=== PATIENT | female | born 1935 | race Caucasian/White ===

== ENCOUNTER 2019-02-03 11:31 | Emergency (ER) | payer OTHER ==
[~2019-02-03 11:31] MED LIST: ALBU8.5H6 IH; ASPI-612 PO; BENZ100C PO; DOXY100V9 PO; ETOD400T2 PO; LOSA100T2 PO; METO50TA29 PO; MULT-245 PO; PROM118S5 PO; SIMV20TA18 PO
--- NOTE | 2019-02-03 11:54 | RAD ---
Examination: CT CODE STROKE HEAD WO History: Neurological deficits; speaking difficulties Comparison/Correlation: None Findings: Axial images of the head were obtained without contrast. Ventricles are normal size. Atrophy and chronic ischemic change noted. No intracranial hemorrhage, midline shift, or mass effect. Small left external capsular lacunar low-attenuation region on axial image 14 is present of indeterminate age. No depressed fracture. Globes and optic nerves are unremarkable. Bony structures are unremarkable. Impression: Possible old left external capsular lacunar infarct of indeterminate age. On 02/03/2019 at 11:49 AM, results reported to the referring emergency room physician. PQRS Compliance Statement: One or more of the following individualized dose reduction techniques were utilized for this examination: 1. Automated exposure control 2. Adjustment of the mA and/or kV according to patient size 3. Use of iterative reconstruction technique Electronically signed by: Dillan Aguilera MD (02/03/2019 11:51 AM) [facility]
[2019-02-03] MEDS ORDERED: ALTEPLASE 0 MG IV SCH (12:00)
[2019-02-03] MEDS ORDERED: IV NORMAL SALINE 50ML 50 ML IV ONE (12:00)
[2019-02-03] MEDS ORDERED: LABETALOL 20 MG/4 ML DISP.SYRIN. IV PRN (12:00)
[2019-02-03] MEDS ORDERED: ALTEPLASE 0 MG IV ONE (12:00)
[2019-02-03] MEDS ORDERED: ALTEPLASE 100 MG VIAL IV ONE (12:00)
--- NOTE | 2019-02-03 12:00 | PHYS DOC ---
Past History Past Medical History: Kidney Stones, [place], Other Past Surgical History: Appendectomy, Hysterectomy, Tonsillectomy Alcohol Use: None Drug Use: None Adult General Chief Complaint Chief Complaint: NEURO SYMPTOMS/DEFICITS HPI HPI Patient is a 83-year-old female presenting with 20 minutes of aphasia she was at some sort of an adult class gardening class she noticed immediately that she could not talk this was a witnessed event she was normal before. She has some numbness in her right arm she has a mild headache yesterday History limited by the acuity of the condition blood sugar was normal in the field patient had a right bundle branch block of note on the EKG Review of Systems Review of Systems Limited by phasia Allergies Allergies Allergies Coded Allergies Type Severity Reaction Last Updated Verified No Known Drug Allergies 07/26/14 No Physical Exam Physical Exam Constitutional: Well developed, well nourished, mild distress HENT: Normocephalic, atraumatic, bilateral external ears normal, oropharynx moist, no oral exudates, nose normal. [] Eyes: PERRLA, EOMI, conjunctiva normal, no discharge. [] Neck: Normal range of motion, no tenderness, supple, no stridor. [] Cardiovascular:Heart rate regular rhythm, 2/6 murmur Lungs & Thorax: Bilateral breath sounds clear to auscultation [] Abdomen: Bowel sounds normal, soft, no tenderness, no masses, no pulsatile masses. [] Skin: Warm, dry, no erythema, no rash. [] Back: No tenderness, no CVA tenderness. [] Extremities: No tenderness, no cyanosis, no clubbing, ROM intact, no edema. [] Neurologic: See stroke scale EKG EKG []nsr rate 75 no stemi rbbb Radiology/Procedures Radiology/Procedures [] Impressions: mpression: Possible old left external capsular lacunar infarct of indeterminate age. On 02/03/2019 at 11:49 AM, results reported to the referring emergency room physician. PQRS Compliance Statement: One or more of the following individualized dose reduction techniques were utilized for this examination: 1. Automated exposure control 2. Adjustment of the mA and/or kV according to patient size 3. Use of iterative reconstruction technique Electronically signed by: Dillan Aguilera MD (02/03/2019 11:51 AM) [facility] Course & Med Decision Making Course & Med Decision Making Pertinent Labs and Imaging studies reviewed. (See chart for details) [] Critical care time was 35 minutes exclusive of procedures. 83-year-old female prior history of paroxysmal A. fib idiopathic thrombocytopenic purpura current platelets are 225 history of hypertension hyperlipidemia no prior stroke history coronary artery disease with stents presenting with last seen normal less than 30 minutes ago of a aphasia stroke scale noted I spoke with Dr. hopper who suggested after the risks and benefits discussion with the patient and/or family TPA would seem reasonable due to debilitating nature of aphasia. TPA was given at 12:18 PM Blood pressures in the 150s contraindication noted no prior history of bleeding platelets were 225 at this time. i did review the [facility] oncology hematology note for 2014 that did state likely itp in the setting of l luan patient is not on any blood thinners at this time. Reevaluation patient had a normal mental status at 1 PM on client account manager arrival to transfer to Dr. Carlos Eduardo hodgson and did accept this patient in transfer for admission to the neuro ICU for further management and care Dragon Disclaimer Dragon Disclaimer This electronic medical record was generated, in whole or in part, using a voice recognition dictation system. Departure Departure: Impression: Primary Impression: Cerebrovascular accident Disposition: XFER SHT-TRM HOSP Condition: GUARDED Referrals: KATHY MCGEE MD (PCP) NIHSS - ED NIH Stroke Scale: NIH Stroke Scale Response (Comments) Value Level of Consciousness: 0 Alert/Responsive 0 LOC Questions: 0 Answers both correctly 0 LOC Commands: 0 Performs both tasks 0 Best Gaze: 0 Normal 0 Visual: 0 No visual loss 0 Facial Palsy: 1 Minor paralysis 1 Motor - Left Arm 0 No drift 0 Motor - Right Arm 0 No drift 0 Motor - Left Leg 0 No drift 0 Motor: Right Leg 0 No drift 0 Limb Ataxia: 0 Absent 0 Sensory: 1 Mid to moderate loss 1 Best Language: 1 Mild to mod aphasia 1 Dysathria: 1 Mild to moderate 1 Total 4 KALIA VELEZ MD Feb 03, 2019 12:00
[2019-02-03 12:04] LABS: BASO # 0.1 x10^3/uL (0.0-0.2); BASO % 1 % (0-3); EOS # 0.2 x10^3/uL (0.0-0.7); EOS % 3 % (0-3); HEMATOCRIT 45.9 % (36.0-47.0); HEMOGLOBIN 15.1 g/dL (12.0-15.5); LYMPH # 2.2 x10^3/uL (1.0-4.8); LYMPH % 24 % (24-48); MEAN CORPUSCULAR HEMOGLOBIN 27 pg (25-35); MEAN CORPUSCULAR HGB CONC 33 g/dL (31-37); MEAN CORPUSCULAR VOLUME 83 fL (79-100); MONO # 0.5 x10^3/uL (0.0-1.1); MONO % 6 % (0-9); NEUT # 5.9 x10^3uL (1.8-7.7); NEUT % 66 % (31-73); PLATELET COUNT 225 x10^3/uL (140-400); RED BLOOD COUNT 5.54 x10^6/uL (3.50-5.40); RED CELL DISTRIBUTION WIDTH 14.8 % (11.5-14.5); WHITE BLOOD COUNT 8.9 x10^3/uL (4.0-11.0)
[2019-02-03] MEDS ORDERED: ALTEPLASE 100 MG IV ONE (12:04)
--- NOTE | 2019-02-03 12:17 | RAD ---
EXAM: CHEST 1 VIEW History: Shortness of breath COMPARISON: 07/26/2014 TECHNIQUE: Single portable radiograph of the chest FINDINGS: The cardiac silhouette is unremarkable. The lungs are clear bilaterally. The costophrenic sulci are clear and well demarcated. IMPRESSION: No radiographic evidence of an acute cardiopulmonary process. Electronically signed by: Jassi Bell MD (02/03/2019 12:13 PM) [id number]
[2019-02-03 12:18] LABS: ALBUMIN 3.7 g/dL (3.4-5.0); ALBUMIN/GLOBULIN RATIO 1.1 (1.0-1.7); CALCIUM 8.8 mg/dL (8.5-10.1); CREATININE 1.1 mg/dL (0.6-1.0); GFR 47.7; POTASSIUM 4.1 mmol/L (3.5-5.1); TOTAL BILIRUBIN 0.5 mg/dL (0.2-1.0); TOTAL PROTEIN 7.1 g/dL (6.4-8.2)
[2019-02-03 12:48] VITALS: BP 163/87
--- NOTE | 2019-02-04 22:31 | EKG ---
[address] [address] Test Date: 2019-02-03 Test Time: 11:36:49 Pat Name: ROSANA SANCHEZ Department: Room: Gender: F Lithostripper: SHEYLA : 1935 Requested By: KALIA VELEZ Order Number: [id number] Reading MD: Almas Hernandez MD Measurements Intervals [place] Rate: 75 P: [place]: QRS: 110 QRSD: 128 T: 15 QT: 466 QTc: 524 Interpretive Statements SINUS RHYTHM RIGHTWARD AXIS RIGHT BUNDLE BRANCH BLOCK PVC'S Electronically Signed On 02-14-2019 12:52:09 CDT by Almas Hernandez MD
== END 2019-02-03 13:05 | disposition short-term general hospital (02) ==
LOC: ER 11:31
DX: I63.9 Cerebral infarction, unspecified (principal); R47.01 Aphasia; I25.2 Old myocardial infarction; Z87.442 Personal history of urinary calculi
CPT/HCPCS: 36415; 37195; 70450; 71045; 80053; 82947; 84484; 85025; 85610; 93005; 99285; G0480; J2997

== ENCOUNTER → 2020-05-15 | Outpatient (CLI) | payer MEDICARE ==
[~2020-05-15] MED LIST changes: -ASPI-612 PO; +ASPI-889 PO; +IOHEXOL 240 MG/ML 50ML VIAL. ONE; +IOHEXOL 240 MG/ML 50ML VIAL. PO ONE; +IOHEXOL 300 MG/ML 75 ML VIAL. IV ONE
[2020-05-15 09:59] LABS: BASO % 1 % (0-3); EOS # 0.3 x10^3/uL (0.0-0.7); EOS % 4 % (0-3); HEMATOCRIT 44.2 % (36.0-47.0); HEMOGLOBIN 14.6 g/dL (12.0-15.5); LYMPH # 2.5 x10^3/uL (1.0-4.8); LYMPH % 31 % (24-48); MEAN CORPUSCULAR HEMOGLOBIN 27 pg (25-35); MEAN CORPUSCULAR HGB CONC 33 g/dL (31-37); MEAN CORPUSCULAR VOLUME 82 fL (79-100); MONO # 0.5 x10^3/uL (0.0-1.1); MONO % 6 % (0-9); NEUT # 4.7 x10^3uL (1.8-7.7); NEUT % 58 % (31-73); PLATELET COUNT 221 x10^3/uL (140-400); RED BLOOD COUNT 5.37 x10^6/uL (3.50-5.40); RED CELL DISTRIBUTION WIDTH 15.2 % (11.5-14.5); WHITE BLOOD COUNT 8.1 x10^3/uL (4.0-11.0)
[2020-05-15 10:08] LABS: ALBUMIN 3.7 g/dL (3.4-5.0); ALBUMIN/GLOBULIN RATIO 1.2 (1.0-1.7); CALCIUM 8.9 mg/dL (8.5-10.1); CREATININE 1.1 mg/dL (0.6-1.0); GFR 47.6; POTASSIUM 4.3 mmol/L (3.5-5.1); TOTAL BILIRUBIN 0.6 mg/dL (0.2-1.0); TOTAL PROTEIN 6.9 g/dL (6.4-8.2)
--- NOTE | 2020-05-15 17:23 | RAD ---
EXAM: CT CHEST, ABDOMEN, AND PELVIS WITH CONTRAST INDICATION: Renal carcinoma COMPARISON: CT chest and pelvis 11/22/2019 TECHNIQUE: Helical CT imaging performed of the chest, abdomen and pelvis after the administration of 60 mL Omnipaque 300 intravenous contrast. Sagittal and coronal reformats were obtained. One or more of the following individualized dose reduction techniques were utilized for this examinat ion: 1. Automated exposure control 2. Adjustment of the mA and/or kV according to patient size 3. Use of iterative reconstruction technique. FINDINGS: CHEST: Thyroid gland and thoracic inlet: Normal. Retropharyngeal course of the common carotid arteries noted . Heart and great vessels: Heart is normal in size. There are coronary artery calcifications. No perica rdial effusion. Thoracic aorta is normal in caliber with mild calcified atherosclerosis. Mediastinum and silvino: No lymphadenopathy. Lungs and pleura: Minimal atelectasis in the left lower lobe. The lungs are otherwise clear. No pleur al effusion. Chest wall and axillae: No axillary lymphadenopathy. Chest wall is unremarkable. Bones: No acute osseous abnormality or suspicious osseous lesion in the chest. There is degenerative disc disease in the lower thoracic spine. ABDOMEN AND PELVIS: Liver: Multiple small hypodense liver lesions measuring up to 1 cm are unchanged from multiple prior exams and likely simple cysts. No new liver lesion. Gallbladder/Biliary Tree: Cholelithiasis is unchanged. Bile ducts are normal. Pancreas: Normal. Spleen: Normal. Adrenal Glands: A 1.1 cm left adrenal nodule is unchanged from 2015. Right adrenal gland is normal. Kidneys/Ureters/Bladder: Unchanged appearance of the kidneys with cortical defect along the posterior right kidney, likely sequela of prior intervention. 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 No suspicious renal mass. Ureters and b ladder are normal. Reproductive Organs: Uterus is surgically absent. No adnexal mass. Stomach, small bowel, and colon: Small hiatal hernia. Stomach, small bowel, and colon are normal. Vasculature: No aortic aneurysm. There is moderate calcified aortoiliac atherosclerosis. Lymph Nodes: No lymphadenopathy. Peritoneum and retroperitoneum: No free fluid or free air. Bones: No acute osseous abnormality or suspicious bone lesion. There is degenerative joint disease of the sacroiliac joints. Severe multilevel facet arthrosis. Grade 1 spondylolisthesis of L4 on L5. IMPRESSION: 1. Treatment-related changes of the right kidney. No evidence of recurrent or metastatic disease. 2. Unchanged small hypodense liver lesions, likely cysts. 3. Unchanged 1.2 cm left adrenal gland nodule. 4. Unchanged Cholelithiasis. Electronically signed by: Mirna Scott MD (05/15/2020 5:20 PM) [id number]
== END ==
LOC: CT 09:26
PROVIDERS: ATTEND Internal Medicine Hematology & Oncology
DX: C64.9 Malignant neoplasm of unspecified kidney, except renal pelvis (principal); I70.0 Atherosclerosis of aorta; J98.11 Atelectasis; M51.34 Other intervertebral disc degeneration, thoracic region; K80.20 Calculus of gallbladder without cholecystitis without obstruction
CPT/HCPCS: 36415; 71260; 74177; 80053; 85025; Q9966; Q9967